=== PATIENT | female | born 1985 | race Caucasian/White ===

== ENCOUNTER → 2017-08-27 | Outpatient (CLI) | payer BC ==
[2017-09-04 12:03] LABS: HPV Genotype 16 Not Detected (NOTDET); HPV Genotype 18 Not Detected (NOTDET)
[2017-09-12 09:06] LABS: HPV High Risk Other Detected (NOTDET)
== END | disposition home or self-care (01) ==
LOC: LAB 11:30
PROVIDERS: Nurse Practitioner Family
DX: Z01.419 Encounter for gynecological examination (general) (routine) without abnormal findings (principal)
CPT/HCPCS: 87624; G0145

== ENCOUNTER 2017-09-14 09:59 | Day surgery (SDC) | payer BC ==
[~2017-09-14] VITALS: Ht 170.2 cm; Wt 71.7 kg
== END 2017-09-14 13:11 | disposition home or self-care (01) ==
LOC: ORSCSDS 09:59
PROVIDERS: Obstetrics & Gynecology
PROC: 0UC98ZZ Extirpation of Matter from Uterus, Via Natural or Artificial Opening Endoscopic (ICD-10-PCS; principal; 2017-09-14 11:00)
DX: T83.32XD Displacement of intrauterine contraceptive device, subsequent encounter (principal)
CPT/HCPCS: 88300; J0690; J1100; J2250; J2370; J2405; J3010; J7120

== ENCOUNTER → 2019-02-14 | Outpatient (CLI) | payer BC | END | disposition home or self-care (01) | LOC: LAB EV 08:00 | DX: R05 Cough (principal) | CPT/HCPCS: 87070; 87205 ==

== ENCOUNTER 2021-09-19 14:46 | Emergency (ER) | payer BC ==
[~2021-09-19] VITALS: Ht 170.2 cm; Wt 79.4 kg
[2021-09-19 15:09] LABS: Source, Urine Clean Catch
[2021-09-19 15:58] LABS: Appearance, Urine Clear (Clear); Bilirubin, Urine Neg (Neg); Blood, Urine 1+ (Neg); Color, Urine Yellow (P-Yellow); Glucose Qualitative, Urine Neg (Neg); Ketones, Urine Neg (Neg); Leukocyte Esterase, Urine 2+ (Neg); Nitrite, Urine Neg (Neg); Protein, Urine Neg (Neg); Specific Gravity, Urine 1.015 (1.003-1.022); Urobilinogen, Urine NORM (Normal)
[2021-09-19 16:20] LABS: Bacteria Many /hpf; Squamous Epithelial Cells Few /hpf (Few)
[2021-09-19] MEDS ORDERED: CEPH500 PO (16:38)
[2021-09-19] MEDS ORDERED: ONDA4ODT MM (16:39)
== END 2021-09-19 16:35 | disposition home or self-care (01) ==
LOC: ER 14:46
PROVIDERS: Physician Assistant
DX: N39.0 Urinary tract infection, site not specified (principal)
CPT/HCPCS: 81001; 81025; 87077; 87086; 87186; 99283